=== PATIENT | male | born 1945 | race Caucasian/White ===

== ENCOUNTER 2018-07-06 13:54 | Emergency (ER) | payer OTHER ==
[~2018-07-06] VITALS: Ht 180.3 cm; Wt 77.1 kg
--- OUTSIDE RECORDS SUMMARY | ~2018-07-06 | XMS | Clinical Summary ---
Demographics + + + | Address | [address] | | | [place] [address] | + + + | Home Phone | | + + + | Preferred Language | Unknown | + + + | Marital Status | | + + + | Amish Affiliation | Unknown | + + + | Race | Unknown | + + + | Ethnic Group | Unknown | + + + Author + + + | Author | [facility] | | | and [place] | + + + | Organization | [facility] | | | and [place] | + + + | Address | Unknown | + + + | Phone | Unavailable | + + + Support + + +---------+ + | Name | Relationship | Address | Phone | + + +---------+ + | Betzaida Jean | ECON | Unknown | | + + +---------+ + Care Team Providers + +------+ + | Care Zigzag Topstitcher Name | Role | Phone | + +------+ + | Maximo Ibanez DO | PP | Unavailable | + +------+ + Allergies No Known Allergies Current Medications + + +--------+---------+------+------+-------+ | Prescription | Sig. | Disp. | Refills | Star | End | Statu | | | | | | t | Date | s | | | | | | Date | | | + + +--------+---------+------+------+-------+ | | Take 2 tablets by | | | | | Activ | | HYDROcodone-acetamin | mouth Twice daily | | | | | e | | ophen (NORCO) 5-325 | as needed for Pain. | | | | | | | mg per tablet | | | | | | | + + +--------+---------+------+------+-------+ | omeprazole | Take 20 mg by mouth | | | | | Activ | | (PRILOSEC) 20 mg | every morning | | | | | e | | capsule | (before breakfast). | | | | | | + + +--------+---------+------+------+-------+ | atorvaSTATin | Take 40 mg by mouth | | | | | Activ | | (LIPITOR) 40 mg | nightly. | | | | | e | | tablet | | | | | | | + + +--------+---------+------+------+-------+ | lisinopril | Take 10 mg by mouth | | | | | Activ | | (PRINIVIL, ZESTRIL) | Daily. | | | | | e | | 10 mg tablet | | | | | | | + + +--------+---------+------+------+-------+ | cholecalciferol | Take 1,000 Units by | | | | | Activ | | (VITAMIN D-3) 1000 | mouth Daily. | | | | | e | | units TABS | | | | | | | + + +--------+---------+------+------+-------+ | pilocarpine | Take 5 mg by mouth | | | | | Activ | | (SALAGEN) 5 mg | Daily. | | | | | e | | tablet | | | | | | | + + +--------+---------+------+------+-------+ | methylPREDNISolone | Take 4 mg by mouth | | | | | Activ | | (MEDROL) 4 mg | Daily. | | | | | e | | tablet | | | | | | | + + +--------+---------+------+------+-------+ | cyclobenzaprine | Take 1 tablet by | 30 | 2 | 04/1 | | Activ | | (FLEXERIL) 10 mg | mouth nightly as | tablet | | 8/20 | | e | | tabletIndications: | needed for Muscle | | | 17 | | | | Myofascial pain | spasms. | | | | | | | syndrome | | | | | | | + + +--------+---------+------+------+-------+ | methocarbamol | Take 1 tablet by | 90 | 2 | 04/11 | | Activ | | (ROBAXIN) 500 mg | mouth up to 3 times | tablet | | 12/31 | | e | | tablet | daily | | | 17 | | | + + +--------+---------+------+------+-------+ Active Problems + + + | Problem | Noted Date | + + + | Chronic neck pain | 02/26/2017 | + + + | Myofascial pain syndrome | 02/26/2017 | + + + | DDD (degenerative disc disease), cervical | 02/26/2017 | + + + Social History + +-------+ +--------+ + | Tobacco Use | Types | Packs/Day | Years | Date | | | | | Used | | + +-------+ +--------+ + | Former Smoker | | 1 | 53 | Quit: 11/11/1999 | + +-------+ +--------+ + + + +---------+ + | Alcohol Use | Drinks/We | oz/Week | Comments | | | ek | | | + + +---------+ + | Yes | | | More than twice a week | + + +---------+ + + + + | Sex Assigned at | Date Recorded | | | | + + + | Not on file | | + + + Last Filed Vital Signs + + + + | Vital Sign | Reading | Time Taken | + + + + | Blood Pressure | 147/79 | 04/22/2017951 PDT | + + + + | Pulse | 63 | 04/22/2017951 PDT | + + + + | Temperature | - | - | + + + + | Respiratory Rate | - | - | + + + + | Oxygen Saturation | - | - | + + + + | Inhaled Oxygen | - | - | | Concentration | | | + + + + | Weight | 81.6 kg (179 lb 12.8 | 04/22/2017951 PDT | | | oz) | | + + + + | Height | 180.3 cm (5' 11") | 04/22/2017951 PDT | + + + + | Body Mass Index | 25.08 | 04/22/2017951 PDT | + + + + Plan of Treatment + + + + + | Health Maintenance | Due Date | Last Done | Comments | + + + + + | Vaccine: | | | | | Dtap/Tdap/Td (1 - | 2 | | | | Tdap) | | | | + + + + + | Vaccine: Zoster (1 | | | | | of 2) | 3 | | | + + + + + | Vaccine: | | | | | Pneumococcal 65+ | 8 | | | | Low/Medium Risk (1 | | | | | of 2 - PCV13) | | | | + + + + + | Vaccine: Influenza | | | | | (#1) | 8 | | | + + + + + | Colorectal Cancer | | 11/15/2016 | | | Screening | 7 | | | | (Colonoscopy) | | | | + + + + + Results Not on filefrom Last 3 Months Insurance + +--------+ +--------+-------+---------+ | Payer | Benefi | Subscriber | Type | Phone | Address | | | t Plan | ID | | | | | | / | | | | | | | Group | | | | | + +--------+ +--------+-------+---------+ | [employer] | [id number] | Indemn | | | | | NS | | ity | | | | | CHOICE | | | | | + +--------+ +--------+-------+---------+ + +--------+ +--------+ + + | Guarantor Name | Accoun | Relation to | Date | Phone | Billing Address | | | t Type | Patient | of | | | | | | | | | | + +--------+ +--------+ + + | SAMI MEZA | Person | Self [birth year] Home: | [address] | | | [place] | | 1945 | [phone] | [place] [address] | | | [place] | | [phone] | | + +--------+ +--------+ + +
--- OUTSIDE RECORDS SUMMARY | ~2018-07-06 | XMS | Clinical Summary ---
Demographics + + + | Address | [address] | | | [place] [address] | + + + | Home Phone | | + + + | Preferred Language | Unknown | + + + | Marital Status | | + + + | Druze Affiliation | Unknown | + + + | Race | Unknown | + + + | Ethnic Group | Unknown | + + + Author + + + | Author | [facility] | | | and [place] | + + + | Organization | [facility] | | | and [place] [...] Team Providers + +------+ + | Care Insurance Verifier Name | Role | Phone | + [...] +--------+-------+---------+ | [employer] | [employer] | [id number] | Indemn | | | | | [...] | 1945 | [phone] | [place] [address] | | | [place] | | | [phone] | | + +--------+ +--------+ + +
[~2018-07-06 13:54] MED LIST: ASPIRIN325 MG PO; CYCLOBENZAPRINE5 MG PO; HYDROCODON-ACE1 EA10 PO; LIPITOR20 MG PO; METHYLPREDNISOLO4 MG PO; OMEPRAZOLE20 M1 PO; PILOCARPINE HCL5 MG PO; ZESTRIL10 MG PO
--- NOTE | 2018-07-07 13:52 | EKG ---
[facility] [address] [place] [address] Signed Sinus rhythm with premature atrial complexes Incomplete right bundle branch block Borderline ECG When compared with ECG of 05-JUL-2018 14:50, (Unconfirmed) premature atrial complexes are now present Incomplete right bundle branch block is now present Confirmed by GUI SANTOS MD ([id number]) on 07/07/2018 1:52:42 PM Electronically Signed By: GUI SANTOS MD 07/07/18 1352 PATIENT NAME: GARY MADRIGAL Electrocardiogram DATE OF : 41 PHYSICIAN: GUI SANTOS MD REPORT #: [id number] REPORT IS CONFIDENTIAL AND NOT TO BE RELEASED WITHOUT AUTHORIZATION
== END 2018-07-06 17:59 | disposition home or self-care (01) ==
LOC: ED 13:54
DX: R07.89 Other chest pain (principal); K21.9 Gastro-esophageal reflux disease without esophagitis; I10 Essential (primary) hypertension; Z86.73 Personal history of transient ischemic attack (TIA), and cerebral infarction without residual deficits; F17.200 Nicotine dependence, unspecified, uncomplicated; Z79.899 Other long term (current) drug therapy; Z79.82 Long term (current) use of aspirin
CPT/HCPCS: 71045; 71275; 80053; 83690; 84484; 85025; 93005; 93010; 96361; 96374; 99285; J7040; Q9967

== ENCOUNTER 2019-04-15 12:00 | Emergency (ER) | payer OTHER ==
[~2019-04-15] VITALS: Ht 180.3 cm; Wt 78.5 kg
[2019-04-15] MEDS ORDERED: OXYCODONE HCL5 MG PO (13:29)
== END 2019-04-15 13:35 | disposition home or self-care (01) ==
LOC: ED 12:00
DX: S13.4XXA Sprain of ligaments of cervical spine, initial encounter (principal); M54.2 Cervicalgia; G89.29 Other chronic pain; K21.9 Gastro-esophageal reflux disease without esophagitis; M06.9 Rheumatoid arthritis, unspecified; I10 Essential (primary) hypertension; Z86.73 Personal history of transient ischemic attack (TIA), and cerebral infarction without residual deficits; Z87.891 Personal history of nicotine dependence; Z79.82 Long term (current) use of aspirin; Z79.899 Other long term (current) drug therapy; V43.92XA Unspecified car occupant injured in collision with other type car in traffic accident, initial encounter
CPT/HCPCS: 73130; 96372; 99283-25; J1885

== ENCOUNTER 2020-01-08 10:39 | Emergency (ER) | payer OTHER ==
[~2020-01-08] VITALS: Ht 180.3 cm; Wt 78.5 kg
[~2020-01-08 10:39] MED LIST changes: +OXYCODONE HCL5 MG PO
[2020-01-08] MEDS ORDERED: VENTOLIN HFA18 GM INH (10:49)
[2020-01-08] MEDS ORDERED: ALLEGRA ALLERG180 MG PO (10:50)
[2020-01-08] MEDS ORDERED: BUDESONIDE-FO10.2 GM INH (10:50)
[2020-01-08] MEDS ORDERED: AMBIEN5 MG PO (10:51)
--- NOTE | 2020-01-09 16:36 | EKG ---
[facility] [address] [place] [address] Signed Normal sinus rhythm Incomplete right bundle branch block Borderline ECG Confirmed by GUI SANTOS MD ([id number]) on 01/09/2020 4:36:13 PM Electronically Signed By: GUI SANTOS MD 01/09/20 1636 PATIENT NAME: GARY MADRIGAL Electrocardiogram DATE OF : 41 PHYSICIAN: GUI SANTOS MD REPORT #: [id number] REPORT IS CONFIDENTIAL AND NOT TO BE RELEASED WITHOUT AUTHORIZATION
== END 2020-01-08 14:43 | disposition home or self-care (01) ==
LOC: ED 10:39
DX: R06.00 Dyspnea, unspecified (principal); I10 Essential (primary) hypertension; K21.9 Gastro-esophageal reflux disease without esophagitis; Z86.73 Personal history of transient ischemic attack (TIA), and cerebral infarction without residual deficits; Z87.891 Personal history of nicotine dependence; Z79.899 Other long term (current) drug therapy
CPT/HCPCS: 71045; 71260; 80053; 83735; 84484; 85025; 85379; 93005; 93010; 99285-25; Q9967

== ENCOUNTER 2020-02-10 12:03 | Emergency (ER) | payer OTHER ==
[~2020-02-10] VITALS: Ht 180.3 cm; Wt 78.5 kg
[~2020-02-10 12:03] MED LIST changes: +ALLEGRA ALLERG180 MG PO; +AMBIEN5 MG PO; +BUDESONIDE-FO10.2 GM INH; +VENTOLIN HFA18 GM INH
[2020-02-10] MEDS ORDERED: IPRAT-ALBUT 0.5-3 ML INH (13:25)
[2020-02-10] MEDS ORDERED: ANTI-ITCH28 G2 GT (13:28)
[2020-02-10] MEDS ORDERED: SILDENAFIL CIT100 MG PO (13:30)
[2020-02-10] MEDS ORDERED: NORCO 5-325 TA1 EACH PO (17:28)
== END 2020-02-10 17:49 | disposition home or self-care (01) ==
LOC: ED 12:03
DX: R10.11 Right upper quadrant pain (principal); K21.9 Gastro-esophageal reflux disease without esophagitis; I10 Essential (primary) hypertension; Z87.891 Personal history of nicotine dependence; Z79.899 Other long term (current) drug therapy
CPT/HCPCS: 74177; 76705; 80053; 81001; 83690; 85025; 99284-25; J1170; J7121; Q9967

== ENCOUNTER 2020-10-31 13:31 | Emergency (ER) | payer OTHER ==
[~2020-10-31] VITALS: Ht 180.3 cm; Wt 78.5 kg
[~2020-10-31 13:31] MED LIST changes: +ANTI-ITCH28 G2 GT; +IPRAT-ALBUT 0.5-3 ML INH; +NORCO 5-325 TA1 EACH PO; +SILDENAFIL CIT100 MG PO
== END 2020-10-31 18:30 | disposition home or self-care (01) ==
LOC: ED 13:31
DX: R51.9 Headache, unspecified (principal); I10 Essential (primary) hypertension; K21.9 Gastro-esophageal reflux disease without esophagitis; Z86.73 Personal history of transient ischemic attack (TIA), and cerebral infarction without residual deficits; Z87.891 Personal history of nicotine dependence; Z79.899 Other long term (current) drug therapy
CPT/HCPCS: 70450; 99284-25